=== PATIENT | female | born 1985 | race African-American/Black ===

== ENCOUNTER 2022-04-03 09:17 | Outpatient (CLI) | payer OTHER, SELFPAY ==
[2022-04-04 19:18] LABS: Rapid Plasma Reagin (RPR) Non Reactive (Non Reactive)
== END 2022-04-03 09:18 | disposition home or self-care (01) ==
LOC: NFLDREF 09:17
PROVIDERS: Visit Provider Advanced Practice Midwife
DX: Z34.91 Encounter for supervision of normal pregnancy, unspecified, first trimester (principal)
CPT/HCPCS: 86592

== ENCOUNTER 2022-06-07 11:32 | Outpatient (CLI) | payer OTHER, MEDICAID, SELFPAY ==
--- OUTSIDE RECORDS SUMMARY | 2022-06-07 11:33 | XMS_ITS | Clinical Summary ---
:1985 Author Organization [facility] [place] [address] Care Team Providers Name Role Phone Fartun Noonan MD Primary Care Provider Allergies Active Allergy Reactions Severity Noted Date Comments Egg Rash 02/22/2021 Medications Medication Sig Dispensed Refills Start Date End Date Status ibuprofen (ADVIL; Take 1 Tablet 0 02/22/2021 Active MOTRIN) 800 mg tablet (800 mg) by mouth 3 times daily if needed. meclizine (ANTIVERT) Take 1 Tablet (25 30 Tablet 0 06/29/2021 Active 25 mg mg) by mouth 3 tabletIndications: times daily if Vertigo needed. isoniazid 300 mg Take 1 Tablet 90 Tablet 2 10/26/2021 07/23/20 Active tabletIndications: TB (300 mg) by mouth lung, latent once daily. vit 28/iron Take 1 Tablet by 90 Tablet 3 11/21/2021 Active fum/folic mouth once daily. (multivitamin folic acid 1 mg)Indications: Positive test Active Problems Problem Noted Date 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 INH. 10/18/2021 Overview: Positive test 11/09/21. No known exposure to active TB in past 2 years. Tx deferred until 3 mos after delivery. Needs CXR prior to initiating. Comments Yes Encounters Date Type Specialty Care Team Description 05/29/2022 Nurse/Clinic Staff Only Immu nization/Injection (COVID-19 vacci ne) 05/29/2022 Travel from Last 3 Months Immunizations Name Administration Dates Next Due COVID-19 vaccine (Pfizer-BioNTech 30mcg/0.3mL) 12YO+ 022 BIVALENT BOOSTER PF, MDV COVID-19 vaccine ([employer]-BioNTech 30mcg/0.3mL) 12YO+ 022 DARRON-SUCROSE PF, MDV COVID-19 vaccine ([employer]-BioNTech 30mcg/0.3mL) PF, 1, 02/22/2021 MDV Tdap 05/10/2022 Social History Tobacco Use Types Packs/Day Years Used Date Never Smoker Smokeless Tobacco: Never Used Tobacco Cessation: Counseling Given: Yes Alcohol Use Standard Drinks/Week Comments Never 0 (1 standard drink = 0.6 oz pure alcoho l) Alcohol Habits Answer Date Recorded How often do you have a drink containing alcohol? Never 02/22/2021 How many drinks containing alcohol do you have on a typical Not asked day when you are drinking? How often do you have six or more drinks on one occasion? No t asked Comment: Not asked Comments Yes Sex Assigned at Date Recorded Not on file COVID-19 Exposure Response Date Recorded In the last 10 days, have you been in contact with No / Unsu re 05/29/2022 9:58 AM CDT someone who was confirmed or suspected to have Coronavirus/COVID-19? Obstetrics History Para Term AB IAB SAB Ectopic Multiple Living Live Births 4 2 2 2 Date Outcome GA Total Labor/2nd/3rd Weight Sex Delivery Anes PTL Jennifer A 1 A5 Name Clin Labor Term Term Current OB Episode Summary Episode Dates Estimated Date of Pregravid Weight TWG (As of ) Delivery 2021 - Present Unknown (06/07/2022) Progress Notes 11/21/2021 - Fartun Noonan MDFormcitlaly tting of this note is different from the original. SUBJECTIVE: Meghan Granado is a 35 y.o. female who presents to discuss Dizziness (X 1 1/2 weeks/Feels the same as when she had vertigo last summer), Nausea (All the time ), Vomiting (About every other day), and surekha avila had positive test at [facility] e 11/09/2021 . HPI Patient presents with concern for dizzin ess and nausea. She just found out she is . Positive test on 11/09/2021. Believes that LMP was early September, but not sure because her periods are irregular. Dizziness and nausea have be en occurring for a few weeks. Similar symptoms to when she had vertigo over the summer. She was prescribed meclizine back then, which helped somewhat. Believes th at the Fara maneuver was more helpful. She is vomiting about every other day. She is also having some headaches. Of note, she saw Dr. Richards on 2 for positive PPD test. Apparently had a negative PPD 5 years ago. No evidence of active disease and negative CXR. She was prescribed INH x9 months (rifampin in short supply). Today, states she has not been taking this as prescribed due to her . She denies known exposure to active tuberculosis in the past 2 years. She reports 2 prior pregnancies. Both we re vaginal deliveries at term. Children are ages 8 and 6. No complications with her prior pregnancies. ROS Review of Systems is included in the HPI . Patient Active Problem List Diagnosis Date Noted ? ? 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 INH. 10/18/2021 Current Outpatient Medications Medication Sig ? ? ibuprofen (ADVIL; MOTRIN) 800 mg tablet Take 1 Tablet (800 mg) by mouth 3 times daily if needed. ? ? isoniazid 300 mg tablet Take 1 Tablet (300 mg) by mouth once daily. ? ? meclizine (ANTIVERT) 25 mg tablet Take 1 Tablet (25 mg) by mouth 3 times daily if needed. ? ? multivitamin 27 mg iron- 800 mcg folic Take 1 Tablet by mouth once daily with a meal. No current facility-administered medicat ions for this visit. Medications have been reviewed by me and are current to the best of my knowledge and ability. OBJECTIVE: BP 93/62 (Cuff Site: Left Arm, Position: Sitting, Cuff Size: Adult Regular) Pulse 82 Temp 99.5 ??F (37.5 ??C) (Oral) Ht 1.638 m (5' 4.5) Wt 55.2 kg (121 lb 12.8 oz) LMP (Approximate) SpO2 99% BMI 20.58 kg/m?? PHYSICAL EXAM General: Well-appearing adult female. Al ert, oriented and appropriate. No acute distress. HEENT: Mucous membranes moist. Cardiovascular: Appears well-perfused. Pulmonary: Breathing comfortably on room air. Skin: No rashes appreciated over exposed skin. Neuro: Grossly normal, no focal deficits . ASSESSMENT AND PLAN: 1. Positive test Positive home test 11/09. Puma gallardo LMP was early September putting her at about 9 weeks. Recommend new OB labs and dating ultrasound today. Suspect increased dizziness and nausea are related to p regnancy. Reviewed nonpharmacologic and ryse-onb-rcrjdol strategies for managing nausea and vomiting of . She was provided with qvci-bcy-txpojyc medication handout and encouraged to t ry vitamin B6 and doxylamine. She will c ontact me if symptoms are not well controlled despite these measures. Plan for follow-up at 10 to 12 weeks for new OB visit. - CBC W PLT NO DIFF; Future - ANTI HIV 1/2; Future - URINE CULTURE; Future - TYPE AND SCREEN; Future - VARICELLA ZOSTER IMM ASSY; Future - RUBELLA IMMUNE STATUS; Future - TREPONEMA PALLIDUM; Future - HBSAG (HBS); Future - ANTI HCV; Future - US OB 1ST TRI SINGLE TA AND TV; Future - vit 28/iron fum/folic (multiv itamin folic acid 1 mg); Take 1 Tablet by mouth once daily. Dispense: 90 Tablet; Refill: 3 - URINE; Future - CBC W PLT NO DIFF - ANTI HIV 1/2 - URINE CULTURE - TYPE AND SCREEN - VARICELLA ZOSTER IMM ASSY - RUBELLA IMMUNE STATUS - TREPONEMA PALLIDUM - HBSAG (HBS) - ANTI HCV - URINE - GC & CHLAMYDIA DNA PCR [[id number]]; Futu re - GC & CHLAMYDIA DNA PCR [[id number]] 2. Latent tuberculosis by skin test Given no known exposure to active TB in the past 2 years, recommend delaying treatment for latent TB until 3 months after delivery. Patient should not take the previously prescribed rifampin. She expresses understanding and agreement with the plan. Fartun Noonan MD .................. .. 11/21/2021 11:46 AM Total time preparing to see this patient , pgtg-ai-pkcq time, and coordinating care time on the same calendar date: 40 minutes. Last Filed Vital Signs Vital Sign Reading Time Taken Comments Blood Pressure 93/62 11/21/2021 11:34 AM CDT Pulse 82 11/21/2021 11:34 AM CDT Temperature 37.5 ??C (99.5 ??F) 11/21/2021 11:34 AM CDT Respiratory Rate - - Oxygen Saturation 99% 11/21/2021 11:34 AM CDT Inhaled Oxygen Concentration - - Weight 55.2 kg (121 lb 12.8 oz) 11/21/2021 11:34 AM CDT Height 163.8 cm (5' 4.5) 11/21/2021 11:34 AM CDT Body Mass Index 20.58 11/21/2021 11:34 AM CDT Plan of Treatment Health Maintenance Due Date Last Done Comments Depression screening for age 12+ 02/23/2022 02/23/2021, , 02/22/2021 Influenza for age 9-49 05/09/2022 BMI (ht and wt on same day) for 11/21/2022 11/21/2021, 02/06 age 18+ Pap test for age 21-65 12/11/2024 12/11/2021, 12/11/2021 Tetanus booster 05/10/2032 05/10/2022 Hepatitis C screening for age Completed 11/21/2021 18-79 Tdap Completed 05/10/2022 COVID-19 vaccine series Completed 05/29/2022, 10/18/2021, 03/15/2021, Additional history exists Results Not on filefrom Last 3 Months Insurance Payer Benefit Plan / Subscriber ID Effective Dates Phone Addre ss Type Group [facility] SHARED [id number] 2020-Presen [address] [address] [place] [address] Meghan Granado Motor Vehicle Self [phone] [id number] (Home) [facility] [place] [address] Care Teams Sales Mgr Relationship Specialty Start Date End Date Fartun Noonan MD PCP - General Family Practice 02/22/21 [address] [facility] [id number]
[2022-06-08 17:22] LABS: Strep B DNA Probe NEGATIVE (Negative)
== END 2022-06-07 11:33 | disposition home or self-care (01) ==
LOC: NFLDREF 11:32
PROVIDERS: Visit Provider Advanced Practice Midwife
DX: Z34.90 Encounter for supervision of normal pregnancy, unspecified, unspecified trimester (principal)
CPT/HCPCS: 87081; 87653

== ENCOUNTER 2022-06-10 15:00 | Outpatient (RCR) | payer OTHER, MEDICAID, SELFPAY ==
--- NOTE | 2022-05-27 12:22 | PT.OPDNX ---
PT [place] [facility] Daily Note PT [facility] Outpatient Daily Note Start: 05/27/22 12:19 Freq: Status: Active Protocol: Document 05/27/22 12:19 ARR (Rec: 05/27/22 12:21 ARR [id number]) E-signed By Emily Zhu DPT PT OP Daily Progress Note Visit Information Note Type Daily Note Visit Number 1 Insurance Information Recert Due Date 07/26/22 Insurance Name Medicaid,UCare Insurance Information/Comments Eval: 05/27 POC 1x5 Medical Diagnosis O99.891 other unspecified diseases and conditions complicating M79.18 myalgia, other site Pain in symphysis pubis during Treating Diagnosis R27.8 Lack of coordination ( muscle incoordination) R10.2 Pelvic and perineal pain R10.30 Lower abdominal pain, unspecified Referring MD Nancy Armendariz CNM ([facility]) Subjective Subjective -MEGHAN 07/05 and ~34 wks this date. Greatest pain is lower belly. Has 2 girls and they sat higher. Now with this sits lower a feels like a sharp pain. Location between legs/groin area bilaterally. Also notes having lower back pain. Tried exercises - doing a ball. Steps are okay, doesn't increase. Has tried many different abdominal braces. Also notes neck pain and shoulder pain -Increases in pain: standing for longer period of time >10 min, walking. Back pain can increase when bending forward Objective Other/Pertinent Objective Posture: IC elevated crest on L by 1 thumbwidth, loss of upper TS kyhposis, inc'd bilat foot pronation with hallux vaglus R>L Palpation: TTP pubic symphysis and bilateral lower quadrant Gait: antalgic gait with wide KRUNAL, inc'd hip/foot ER, swayback type posture RANGE OF MOTION: Lumbar ROM: -Flx:75% limitation with LBP inc'd posterior prominence of L spine likely indicating posterior rotation on L -Ext: 60% limitation with LBP -R Rot: limited with pain -L Rot: limited with pain STRENGTH: LE Strength (R/L) -Hip drop during stance phase bilat indicating glut med weakness OTHER: -Hyperextension into bilateral knees and elbows Patient Instructed in Risks/Benefits Yes Therapeutic Exercise Therapeutic Exercise Minutes (minutes) 15 Therapeutic Exercise: To Restore Therapeutic Exercise: Functional Status Indicated for improvement in strengthening and mobility. -Handouts with written instructions and photographs of exercises were issued to the patient for exercises to be included in HEP. Answered patient questions regarding POC, and mobility/stretches to perform if pain occurs -TS AROM rotation x 8 reps ea side -Side breathing x 8 reps ea side -Sidelying TA activation on an exhale 8 x 3? holds -Quadruped breathing with TA activation Therapeutic Activity Therapeutic Activity Minutes (minutes) 15 Therapeutic Activities Comments Education for transfers to reduce pain/dysfunction: Sit to Stand: - Stagger your stance so one foot is slightly in front of the other - Inhale then EXHALE blowing out candles as you . . . - 1) Lift baby (tightening lower belly muscles) - 2) Tighten butt muscles Walking or Standing: - Pull through crown of head ( pull hair on top of head) to get tall - Lightly lift baby - If walking lightly tighten butt muscle on leg that is stepping on the ground Treatment Minutes Untimed Code Treatment Minutes 25 Timed Code Treatment Minutes 30 Total Treatment Time 55 Billing Units Therapeutic Activity Units 1 Therapeutic Exercise Units 1 Assessment/Impression Assessment/Impression Pt is a 36 y/o female who presents with complaints of bilateral groin/pubic symphysis pain 35 wks with MEGHAN 07/05. 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 Patient also has notable objective findings including bilateral foot pronation, joint hypermobility also likely contributing to the problem. Patient is a good candidate for skilled therapy to target deficits described above. Skilled PT intervention is necessary for use of therapeutic exercise manual therapy, neuromuscular re- education, gait training, and therapeutic activity. Functional impairments include difficulty with: standing >10 min, walking. See appropriate sections of PT eval for complete list of goals and POC . D/C plan and criteria is for pt to achieve the goals as listed below or until max rehab potential is met. Pt was agreeable with plan of care and goals established. Plan of Care Physical Therapy Goals STG (within 1 visits) 1) Pt will initiate HEP without increased pain/ symptoms 2) Pt will demonstrate ability to isometrically activate TA and gluts with minimal compensations in order to improve lumbopelvic stability LTG (within 5 visits) 1) Pt will be indep with HEP for [employer] management of pain/symptoms 2) Pt will demonstrate ability to maintain activation of TA and gluts with minimal compensations during dynamic lower/upper body mvmts in order to improve lumbopelvic stability 3)Pt will be able to walk at least 15 min pain not exceeding 3/10 to improve community mobiltiy 4) Pt will report at least 50% improvement in pain/symptoms since start of PT for improved ability to complete ADLs Daily Plan of Care Comments PLAN: -STM adductors, cupping into low back, seated glut strengthening, breathing/ stretching for delivery Recertification Information Provider Signature Shows Agreement With POC & Medical Necessity
--- NOTE | 2022-05-31 12:47 | PT.OPEX ---
PT [place] Outpatient Eval PT [facility] Outpatient Eval Start: 05/27/22 09:07 Freq: Status: Active Protocol: Document 05/27/22 09:08 ARR (Rec: 05/27/22 10:01 ARR [id number]) E-signed By Emily Zhu DPT Physical Therapy Outpatient Evaluation Insurance Information Recert Due Date 07/26/22 Insurance Name Medicaid,are Insurance Information/Comments Eval: 05/27 POC 1x5 Medical Diagnosis O99.891 other unspecified diseases and conditions complicating M79.18 myalgia, other site Pain in symphysis pubis during Treating Diagnosis R27.8 Lack of coordination ( muscle incoordination) R10.2 Pelvic and perineal pain R10.30 Lower abdominal pain, unspecified Referring MD Nacny Armendariz CNM ([facility]) Subjective Subjective -MEGHAN 07/05 and ~34 wks this date. Greatest pain is lower belly. Has 2 girls and they sat higher. Now with this sits lower a feels like a sharp pain. Location between legs/groin area bilaterally. Also notes having lower back pain. Tried exercises - doing a ball. Steps are okay, doesn't increase. Has tried many different abdominal braces. Also notes neck pain and shoulder pain -Increases in pain: standing for longer period of time >10 min, walking. Back pain can increase when bending forward Objective Other/Pertinent Objective Posture: IC elevated crest on L by 1 thumbwidth, loss of upper TS kyhposis, inc'd bilat foot pronation with hallux vaglus R>L Palpation: TTP pubic symphysis and bilateral lower quadrant Gait: antalgic gait with wide KRUNAL, inc'd hip/foot ER, swayback type posture RANGE OF MOTION: Lumbar ROM: -Flx:75% limitation with LBP inc'd posterior prominence of L spine likely indicating posterior rotation on L -Ext: 60% limitation with LBP -R Rot: limited with pain -L Rot: limited with pain STRENGTH: LE Strength (R/L) -Hip drop during stance phase bilat indicating glut med weakness OTHER: -Hyperextension into bilateral knees and elbows Assessment Assessment/Impression Pt is a 36 y/o female who presents with complaints of bilateral groin/pubic symphysis pain 35 wks with MEGHAN 07/05. 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 Patient also has notable objective findings including bilateral foot pronation, joint hypermobility also likely contributing to the problem. Patient is a good candidate for skilled therapy to target deficits described above. Skilled PT intervention is necessary for use of therapeutic exercise manual therapy, neuromuscular re- education, gait training, and therapeutic activity. Functional impairments include difficulty with: standing >10 min, walking. See appropriate sections of PT eval for complete list of goals and POC . D/C plan and criteria is for pt to achieve the goals as listed below or until max rehab potential is met. Pt was agreeable with plan of care and goals established. Plan of Care Physical Therapy Goals STG (within 1 visits) 1) Pt will initiate HEP without increased pain/ symptoms 2) Pt will demonstrate ability to isometrically activate TA and gluts with minimal compensations in order to improve lumbopelvic stability LTG (within 5 visits) 1) Pt will be indep with HEP for [facility] management of pain/symptoms 2) Pt will demonstrate ability to maintain activation of TA and gluts with minimal compensations during dynamic lower/upper body mvmts in order to improve lumbopelvic stability 3)Pt will be able to walk at least 15 min pain not exceeding 3/10 to improve community mobiltiy 4) Pt will report at least 50% improvement in pain/symptoms since start of PT for improved ability to complete ADLs Frequency/Duration 1x/wk x 5 visits within 60 days Patient Will Be Discharged From Therapy Skills [facility],Independent w/ HEP Evaluation Billing Untimed Code Treatment Minutes 25 Complexity Low Certification Information Initial Certification Date 05/27/22 Ending Certification Date 07/26/22 Provider Signature Shows Agreement With POC & Medical Necessity Physician Comment/Change Comment or Changes Physician NPI Number #
== END 2022-07-04 16:20 | disposition home or self-care (01) ==
PROVIDERS: Visit Provider Advanced Practice Midwife
DX: O99.891 Other specified diseases and conditions complicating pregnancy (principal); Z51.89 Encounter for other specified aftercare
CPT/HCPCS: 97110; 97112; 97140; 97161; 97530

== ENCOUNTER 2022-06-18 17:52 | Outpatient (CLI) | payer OTHER, MEDICAID, SELFPAY ==
--- OUTSIDE RECORDS SUMMARY | 2022-06-18 17:55 | XMS_ITS | Clinical Summary ---
:1985 Author Organization [employer] [place] [address] Care Team Providers Name Role Phone Fartun [...] 022 BIVALENT BOOSTER PF, MDV COVID-19 vaccine ([employer]-BioNTech 30mcg/0.3mL) 12YO+ 022 DARRON-SUCROSE PF, MDV COVID-19 vaccine (Hydrophi-BioNTech 30mcg/0.3mL) PF, 1, 02/22/2021 MDV Tdap 05/10/2022 [...] of ) Delivery 2021 - Present Unknown (06/18/2022) Progress Notes 11/21/2021 - Fartun Noonan MDFormcitlaly tting of this note is different from the original. SUBJECTIVE: Meghan Granado is a 35 y.o. female who presents to discuss Dizziness (X 1 1/2 weeks/Feels the same as when she had vertigo last summer), Nausea (All the time ), Vomiting (About every other day), and surekha avila had positive test at [facility] e 11/09/2021 . HPI Patient presents with [...] related to p regnancy. Reviewed nonpharmacologic and acce-dvi-pfgafuk strategies for managing nausea and vomiting of . She was provided with pirb-vkd-ehjifms medication handout and encouraged to t ry [...] URINE - GC & CHLAMYDIA DNA PCR [[id number]]; Futu re - GC & CHLAMYDIA DNA PCR [[id number]] 2. Latent tuberculosis by skin test Given no known exposure to active TB in the past 2 years, recommend delaying treatment for latent TB until 3 months after delivery. Patient should not take the previously prescribed rifampin. She expresses understanding and agreement with the plan. Fartun Noonan MD .................. .. 11/21/2021 11:46 AM Total time preparing to see this patient , hshb-th-xffi time, and coordinating care time on the [...] Effective Dates Phone Addre ss Type Group [facility] SHARED [id number] 2020-[address]en [address] [address] [place] [address] Meghan Granado Motor Vehicle Self [phone] [id number] (Home) [facility] [place] [address] Care Teams Level Vial Marker Relationship Specialty Start Date End Date Fartun Noonan MD PCP - General Family Practice 02/22/21 [address] [facility] [id number]
[2022-06-18 18:20] VITALS: PULSE 84; O2SAT 97
--- NOTE | 2022-06-18 19:15 | PC.OBNST ---
NST Note NST Note Start: 06/18/22 18:02 Freq: ONCE Status: Active Protocol: Document 06/18/22 18:32 [facility] (Rec: 06/18/22 19:15 [facility] [id number]) NST Note 3 Para (# of births) 2 EDC 07/05/22 Gestational Age In Weeks & Days 37 Weeks & 4 Days Patient Presented with Complaint(s) of Decreased movement Other Complaints Continues to have SOB and migraines, MD is aware that this has been ongoing. Patient did feel one movement from baby while RN was in room. Reactive Yes Appropriate for Gestational Age Yes MEHDI Damon RN Date 06/18/22 Reactive Yes Appropriate for Gestational Age Yes MEHDI Stahl RN Date 06/18/22 OB NST charge Yes Complete NST Note via Write Note Yes The provider's electronic signature indicates the NST is reactive/appropriate for gestational age. *Note to provider: If an addendum is required, open the patient's chart and click on the note under the Nurse/Allied Health tab.
== END 2022-06-18 19:05 | disposition home or self-care (01) ==
LOC: OB OUT 17:53 → OB 17:54
PROVIDERS: Visit Provider Advanced Practice Midwife
DX: O36.8130 Decreased fetal movements, third trimester, not applicable or unspecified (principal); Z3A.37 37 weeks gestation of pregnancy
CPT/HCPCS: 59025; 99213

== ENCOUNTER 2022-06-18 19:30 | Outpatient (CLI) | payer OTHER, MEDICAID, SELFPAY ==
--- OUTSIDE RECORDS SUMMARY | 2022-06-18 19:32 | XMS_ITS | Clinical Summary ---
:1985 Author Organization [employer] [facility] [place] [address] Care Team Providers Name Role Phone Fartun [...] 022 BIVALENT BOOSTER PF, MDV COVID-19 vaccine ([employer]-BioNTech 30mcg/0.3mL) 12YO+ 022 DARRON-SUCROSE PF, MDV COVID-19 vaccine ([employer]-BioNTech 30mcg/0.3mL) PF, 1, 02/22/2021 MDV Tdap 05/10/2022 [...] and surekha avila had positive test at [facility] e 11/09/2021 . HPI Patient presents with [...] related to p regnancy. Reviewed nonpharmacologic and ssxo-ayl-txuzfes strategies for managing nausea and vomiting of . She was provided with ocqh-mtl-itebbbl medication handout and encouraged to t ry [...] URINE - GC & CHLAMYDIA DNA PCR [[id number]]; Futu re - GC & CHLAMYDIA DNA PCR [[id number]] 2. Latent tuberculosis by skin test Given no known exposure to active TB in the past 2 years, recommend delaying treatment for latent TB until 3 months after delivery. Patient should not take the previously prescribed rifampin. She expresses understanding and agreement with the plan. Fartun Noonan MD .................. .. 11/21/2021 11:46 AM Total time preparing to see this patient , yfiz-nd-avbl time, and coordinating care time on the [...] Effective Dates Phone Addre ss Type Group [facility] SHARED [id number] 2020-[address]en [address] [address] [place] [address] Meghan Granado Motor Vehicle Self [phone] [id number] (Home) [facility] [place] [address] Care Teams Food Processing Chemist Relationship Specialty Start Date End Date Fartun Noonan MD PCP - General Family Practice 02/22/21 [address] [facility] [address]
[2022-06-18 19:35] VITALS: BP 99/64; PULSE 85; RESP 16; TEMP 36.9
[2022-06-18 19:37] VITALS: PULSE 79; O2SAT 100
[2022-06-18] MEDS: LACTATED RINGERS 1000 ML 1,000 ML 970 ML IV (19:56)
[2022-06-18] MEDS: ONDANSETRON 2 MG/ML inj 4 MG IVP (20:05)
[2022-06-18 20:14] LABS: Basophils Absolute Auto 0.04 K/uL (0.00-0.30); Basophils Percent Auto 0.4 % (0.0-3.0); Eosinophils Absolute Auto 0.08 K/uL (0.00-0.50); Eosinophils Percent Auto 0.8 % (0.0-7.0); Hematocrit 38.1 % (33.0-51.0); Hemoglobin* 12.6 gm/dL (12.0-16.0); Immature Granulocytes Abs Auto 0.06 K/uL (0.00-0.30); Lymphocytes Percent Auto 19.8 % (20-44); Mean Corpuscular HGB Conc 33 gm/dL (32-36); Mean Corpuscular Hemoglobin 29 pg (26-34); Mean Corpuscular Volume 87 fL (80-100); Neutrophils Percent Auto 71.4 % (42.0-72.0); Platelet Count* 185 K/uL (140-440); RDW Coefficient of Variation % 13.7 % (11.5-15.5); Red Blood Count 4.36 m/uL (4.00-5.20); White Blood Count* 9.95 K/uL (4.50-11.00)
[2022-06-18 20:22] LABS: Slide Review Reflex No
--- NOTE | 2022-06-19 01:28 | PC.OBNST ---
NST Note NST Note Start: 06/18/22 19:39 Freq: ONCE Status: Active Protocol: Document 06/19/22 01:25 JOSE (Rec: 06/19/22 01:27 JOSE [id number]) NST Note 3 Para (# of births) 2 EDC 07/05/22 Gestational Age In Weeks & Days 37 Weeks & 5 Days Patient Presented with Complaint(s) of Other Other Complaints Decreased LOC/increased fatigue evaluation Reactive Yes Appropriate for Gestational Age Yes MEHDI Baca, RNC Date 06/18/22 Reactive Yes Appropriate for Gestational Age Yes MEHDI Suarez, RN Date 06/18/22 OB NST charge Yes Complete NST Note via Write Note Yes The provider's electronic signature indicates the NST is reactive/appropriate for gestational age. *Note to provider: If an addendum is required, open the patient's chart and click on the note under the Nurse/Allied Health tab.
== END 2022-06-18 23:50 | disposition home or self-care (01) ==
LOC: OB OUT 19:30 → OB 19:31
PROVIDERS: Visit Provider Advanced Practice Midwife
DX: O36.8130 Decreased fetal movements, third trimester, not applicable or unspecified (principal); Z3A.37 37 weeks gestation of pregnancy
CPT/HCPCS: 36415; 59025; 85025; 99213; J2405; J7120

== ENCOUNTER 2022-07-02 09:52 | Inpatient (IN) | payer OTHER, MEDICAID, SELFPAY ==
[2022-07-01] VITALS (19 sets, daily range): BP systolic 92; BP diastolic 64; PULSE 76–108; RESP 16; TEMP 36.8; O2SAT 93–100
--- OUTSIDE RECORDS SUMMARY | 2022-07-01 18:22 | XMS_ITS | Clinical Summary ---
:1985 Author Organization [facility] [place] [address] Care Team Providers Name Role Phone Fartun [...] 022 BIVALENT BOOSTER PF, MDV COVID-19 vaccine (Pfizer-BioNTech 30mcg/0.3mL) 12YO+ 022 DARRON-SUCROSE PF, MDV COVID-19 vaccine (Pfizer-BioNTech 30mcg/0.3mL) PF, 1, 02/22/2021 MDV Tdap 05/10/2022 [...] Assigned at Date Recorded Not on file Obstetrics History Para Term AB IAB SAB Ectopic Multiple Living Live Births 4 2 2 2 Date Outcome GA Total Labor/2nd/3rd Weight Sex Delivery Anes PTL Jennifer A 1 A5 Name Clin Labor Term Term Current OB Episode Summary Episode Dates Estimated Date of Pregravid Weight TWG (As of ) Delivery 2021 - Present Unknown (07/01/2022) Progress Notes 11/21/2021 - Fartun Noonan MDFormcitlaly tting of this note is different from the original. SUBJECTIVE: Meghan Granado is a 35 y.o. female who presents to discuss Dizziness (X 1 1/2 weeks/Feels the same as when she had vertigo last summer), Nausea (All the time ), Vomiting (About every other day), and pa austin had positive test at [facility] 11/09/2021 . HPI Patient presents with [...] 1. Positive test Positive home test 11/09. Estima paulina LMP was early September putting her at about 9 weeks. Recommend new OB labs and dating ultrasound today. Suspect increased dizziness and nausea are related to p regnancy. Reviewed nonpharmacologic and efpf-cub-wnlfove strategies for managing nausea and vomiting of . She was provided with xeei-mwd-xkbptzt medication handout and encouraged to t ry [...] URINE - GC & CHLAMYDIA DNA PCR [[id number]]; Futu re - GC & CHLAMYDIA DNA PCR [[id number]] 2. Latent tuberculosis by skin test Given no known exposure to active TB in the past 2 years, recommend delaying treatment for latent TB until 3 months after delivery. Patient should not take the previously prescribed rifampin. She expresses understanding and agreement with the plan. Fartun Noonan MD .................. .. 11/21/2021 11:46 AM Total time preparing to see this patient , pzmj-be-xiai time, and coordinating care time on the [...] Effective Dates Phone Addre ss Type Group [facility] SHARED [id number] [address] [address] [place] [address] Meghan Granado Motor Vehicle Self [phone] [id number] ([address]) [address] [id number] Care Teams Wedding Coordinator Relationship Specialty Start Date End Date Fartun Noonan MD PCP - General Family Practice 02/22/[address] [place] [address] [address]
[2022-07-01 19:30] LABS: Basophils Absolute Auto 0.04 K/uL (0.00-0.30); Basophils Percent Auto 0.4 % (0.0-3.0); Eosinophils Absolute Auto 0.06 K/uL (0.00-0.50); Eosinophils Percent Auto 0.6 % (0.0-7.0); Hematocrit 42.2 % (33.0-51.0); Hemoglobin* 14.1 gm/dL (12.0-16.0); Immature Granulocytes Abs Auto 0.05 K/uL (0.00-0.30); Lymphocytes Percent Auto 17.3 % (20-44); Mean Corpuscular HGB Conc 33 gm/dL (32-36); Mean Corpuscular Hemoglobin 29 pg (26-34); Mean Corpuscular Volume 87 fL (80-100); Monocytes Percent Auto 5.1 % (0.0-11.0); Neutrophils Percent Auto 76.1 % (42.0-72.0); Platelet Count* 197 K/uL (140-440); RDW Coefficient of Variation % 13.7 % (11.5-15.5); Red Blood Count 4.86 m/uL (4.00-5.20); White Blood Count* 10.47 K/uL (4.50-11.00)
[2022-07-01 19:55] LABS: NT Pro B Type NatriureticPept* 32 PG/mL (0-125)
[2022-07-01 20:12] LABS: Slide Review Reflex No
[2022-07-01 20:16] LABS: Troponin I* < 0.01 ng/mL (0.01-0.04)
--- NOTE | 2022-07-01 21:14 | PM.OBCN1 ---
OB - CN: HPI Date of Consult Time Seen by Provider: 18:00 Date Seen: 07/01/22 Patient: [facility] Patient Consult date: 07/02/22 Requesting Physician: Nancy Armendariz APRN CNM Primary Care Provider: Not a Local Provider Consult Narrative Narrative: The patient is a 36 year old G 3 P 2001 at 39 weeks 3 days gestation that was admitted for observation overnight at the [facility] on 07/01/2022 for diagnosed deep vein thrombosis. Patient was seen in clinic by Nancy Armendariz APRN CNM complaining of left calf pain and SOB. With calf pain getting increasing worse. Patient was sent for lower extremity doppler and diagnosed with a left popliteal thrombosis. I was consulted after verbal read from highway engineering technician. I assessed patient in clinic and she states that her SOB has been on going since the last month of , worse with exertion and position changes. Additionally, her SOB is worse at night, sometimes making it difficult for her to fall asleep. It was a gradual onset and no associated chest pain. She noted her left calf pain a week ago and has progressively gotten worse and getting more difficult to bear weight. She denies any injury or recent prolonged period of immobility such as long car/plane rides. She has no history or family history of blood clots. +FM. Denies contraction, LOF, or vaginal bleeding. BPP 8/10 today (2 off for breathing). See clinic note for complete review of well-being. History History 3 Elective abortions Para 2 Spontaneous abortions Hx # Term Pregnancies 2 Ectopic pregnancies Hx # Pregnancies Multiple births Number of Living Children 2 Past Pregnancies Del. Date GA/Weeks Outcome Route wt Inf Gender Labor Lgth Anesthesia Location Provider Compli 02/06/14 live - full term 2.722 kg Female In [place] 10/09/15 live - full term 3.175 kg Female In [place] Review of Systems Status of ROS: Reports: 10 or more systems reviewed and unremarkable except as noted in History and below PFSH PFS Medical History (Updated 07/01/22 @ 23:27 by Maeve Felipe MD) No pertinent past medical history Surgical History (Updated 06/14/22 @ 16:11 by Lisa Santos CNM) No pertinent past surgical history Social History (Updated 06/14/22 @ 16:12 by JOSE CARLOS Crum Narrative: SOCIAL HISTORY: 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 Marital status: . Restoration/cultural needs: no Chemical or radiation exposure: no. Pre- tobacco use: no. Pre- alcohol use: no. Current tobacco use: no. Current alcohol use: no. Recreational drug use: no. Dietary restrictions: no. Blood transfusion acceptable in an emergency: yes PSYCHOSOCIAL HISTORY: History of depression or currently depresses: no Current physical, emotional, or sexual mistreatment: no. Problems that will make it hard to make it to appointments: no. Smoking Status: Never smoker Little interest or pleasure in doing things: more than half the days Feeling down, depressed, or hopeless: nearly every day Meds Home Medications and Allergies Allergies Allergy/AdvReac Type Severity Reaction Status Date / Time No Known Allergies Allergy Unknown Verified 07/01/22 13:43 Eggs Allergy Uncoded 07/01/22 13:43 OB - H&P: Exam Physical Exam: Vital signs: Pulse Ox 99 07/01/22 19:49 Narrative: Physical exam: General: No acute distress Psych: Alert and oriented x3, full affect HEENT: Normocephalic, atraumatic Neck: No cervical adenopathy, no thyromegaly Heart: Regular rate and rhythm, no murmur rub or gallop Lungs: Clear to auscultation bilaterally in all lung vargas. Normal respiratory effort. Abdomen: Gravid. Soft and non tender to palpation. Skin: No lesions or rashes Lower extremities: No edema or erythema bilaterally. Tenderness on palpation of posterior calf of left leg. +Serene sign on left leg. Pelvic exam: Defer OB - Results Labs Labs: Short CBC 07/01/22 Range/Units 19:23 WBC 10.47 (4.50-11.00) K/uL Hgb 14.1 (12.0-16.0) gm/dL Hct 42.2 (33.0-51.0) % Plt Count 197 (140-440) K/uL Cardiac Enzymes 07/01/22 Range/Units 19:23 Troponin I < 0.01 L (0.01-0.04) ng/mL OB - CN: A/P Assessment and Plan (1) DVT (deep vein thrombosis) in : Status: Acute Plan Deep vein thrombosis in - Dx on 07/01 based on lower extremity ultrasound - I discussed ultrasound findings with Dr. Forbes who states that patient has acute DVT in left lower extremity popliteal vein and probably extending into the peroneal veins. - I discussed the findings with patient and informed her that she would need therapeutic anticoagulation. - Duration of therapy for DVT is at least 3 months for patients who only have transient risk factors for VTE (ie. surgery/), longer should we discover multiple other risk factors or persistent risk factors for VTE. - We discussed that given her diagnosis of DVT, it makes her SOB complaint more concerning. Clinically, she appears well with normal respiration and has O2 sat above 98% on RA. However, I can't be certain that she does not have clots in her lungs. We would rule this out with either a V/Q scan or CTPE. I recommend CTPE given her current SOB. We discussed that dose for a CT chest is almost negligible, 0.01 - 0.66 mGy and would not be expected to cause any harm, especially this late in . Patient is extremely hesitant and wants to avoid ionizing radiation exposure to any kind of radiation. She asked what the CTPE would change about her management plan if she is already going to be on therapeutic anticoagulation. I told her that some pulmonary embolisms might require catheter directed thrombolysis, thrombectomy, or a combination of both. She states that she does not think she has a PE in things that her shortness of breath is related as well as some element of anxiety. I agree with the patient that this is most likely as her vital signs are all within normal but cannot r/o a PE definitively without imaging. - Patient continues to decline CTPE - As patient does not want CTPE, I recommended observation overnight on L&D with continuous monitoring of her O2 sat, as her SOB is worse at night. Additionally, given that it's very late in the day, there are no clinic nurses to do Lovenox teaching. The nurses on L&D can give her the first dose of Lovenox and give teaching tomorrow morning. - Will also send troponin and BNP to evaluate for heart strain. If elevated, will re-discuss with patient the importance of getting a CTPE. - Lovenox 1mg/kg Q12H for at least 3 months - Her calculated dosing is 66 mg of lovenox Q12H. Lovenox syringes do not come prefilled in this dosing and it would be difficult for patient to draw up exact dose. Would round her recommended dosing to 70 mg Q12H. Spoke with hospital pharmacy and there is only 60 mg and 80 mg prefilled. They do not have the 10 mg prefilled syringes here to give with the 60 mg but states that her preferred pharmacy might have it. - Plan for 66 mg of lovenox Q12H while in hospital and discharge on 70 mg of lovenox Q12H for at least 3 months - I do not recommend treating her with anything less than Lovenox 66 mg Q12H without monitoring anti-Xa levels to guide dose adjustment to make sure patient is at a therapeutic level - Should anti-Xa monitoring be needed, 1st anti-Xa level is to be drawn 4 hours after her 4th dose. Target range: anti-Xa of 0.6 to 1.0 IU/mL - Any dose adjustment made should be followed up with an anti-Xa level after 3rd injection of new dose. Will not need to recheck anti-Xa after target range is reached - Delivery planning - Spoke with Nancy Armendariz APRN CNM, currently no IOL plan, awaiting spontaneous labor. - DVT is not an indication for IOL, would deliver for obstetrical indications only - Recommend discontinuing Lovenox 24 hours prior to delivery if date is predictable, possible transition to UFH depending in clinical picture and risk factors at time of delivery
[2022-07-01] MEDS: ENOXAPARIN 80 MG/0.8 ML INJ 70 MG SUBCUT (21:20)
[2022-07-01] MEDS: ACETAMINOPHEN 500 MG TABLET 1000 MG PO (21:42)
[2022-07-02] VITALS (142 sets, daily range): BP systolic 73–103; BP diastolic 44–68; PULSE 63–121; RESP 16–18; TEMP 36.6–37; O2SAT 94–100
[2022-07-02] MEDS: ONDANSETRON ODT 4 MG TAB PO (02:21)
[2022-07-02] MEDS: hydrOXYzine pamoate 25 MG CAPSULE 50 MG PO (02:27)
[2022-07-02 10:20] LABS: Hematocrit 41.7 % (33.0-51.0); Mean Corpuscular HGB Conc 34 gm/dL (32-36); Mean Corpuscular Hemoglobin 29 pg (26-34); Mean Corpuscular Volume 87 fL (80-100); Platelet Count* 181 K/uL (140-440); Red Blood Count 4.82 m/uL (4.00-5.20); White Blood Count* 9.13 K/uL (4.50-11.00)
[2022-07-02 10:25] LABS: Slide Review Reflex No
[2022-07-02] MEDS: HEPARIN 25,000 UNIT/500 ML BAG 24 UNIT IV (10:26)
[2022-07-02 10:33] LABS: INR 1.14 (0.91-1.10); Prothrombin Time 15.2 Seconds
[2022-07-02 11:06] LABS: Partial Thromboplastin Time* 28 Seconds (23-33)
--- NOTE | 2022-07-02 13:14 | PM.OBCN1 ---
OB - CN: HPI Date of Consult Date Seen: 07/02/22 Patient: [facility] Patient Consult date: 07/02/22 Requesting Physician: Lisa Santos CNM Primary Care Provider: Not a Local Provider Consult Narrative Narrative: The patient is a 36 year old G 3 P 2-0-0-2 woman at 39 4/7 weeks' gestation that was admitted to the Center on yesterday for new diagnosis of left extremity deep venous thrombosis. Please refer to Dr. Felipe's consult note from last night for full detail. Interim update: Margarita reports that She has had no change in SOB. She continues to feel sore behind her left knee with walking. Regarding her desires for delivery: she has never had an unmedicated delivery. While she favors waterbirth, she does want access to epidural should she feel she needs this. History History 3 Elective abortions Para 2 Spontaneous abortions Hx # Term Pregnancies 2 Ectopic pregnancies Hx # Pregnancies Multiple births Number of Living Children 2 Past Pregnancies Del. 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 Marital status: . Religion/cultural needs: no Chemical or radiation exposure: no. Pre- tobacco use: no. Pre- alcohol use: no. Current tobacco use: no. Current alcohol use: no. Recreational drug use: no. Dietary restrictions: no. Blood transfusion acceptable in an emergency: yes PSYCHOSOCIAL HISTORY: History of depression or currently depresses: no Current physical, emotional, or sexual mistreatment: no. Problems that will make it hard to make it to appointments: no. Smoking Status: Never smoker Little interest or pleasure in doing things: more than half the days Feeling down, depressed, or hopeless: nearly every day Meds Home Medications and Allergies Allergies Allergy/AdvReac Type Severity Reaction Status Date / Time egg Allergy Rash Verified 07/02/22 11:32 OB - H&P: Exam Physical Exam: Vital signs: Temp Pulse Resp BP Pulse Ox 97.8 F 88 16 91/55 L 99 07/02/22 03:00 07/02/22 12:27 07/02/22 03:00 07/02/22 12:27 07/02/22 13:10 Narrative: Gen - delightful, pleasant, NAD Abd - soft, NT, gravid SVE - 3 / 90 / 0 / midposition / soft, vertex OB - Results Labs Labs: Short CBC 07/01/22 07/02/22 Range/Units 19:23 10:00 WBC 10.47 9.13 (4.50-11.00) K/uL Hgb 14.1 14.0 (12.0-16.0) gm/dL Hct 42.2 41.7 (33.0-51.0) % Plt Count 197 181 (140-440) K/uL Cardiac Enzymes 07/01/22 Range/Units 19:23 Troponin I < 0.01 L (0.01-0.04) ng/mL BNP normal last night OB - CN: A/P Assessment and Plan (1) DVT (deep vein thrombosis) in : Status: Acute Plan First, Margarita's case was discussed with JESSICA Keller at [facility]. Margarita would not require IVC filter placement. Dr. Crocker did recommend echocardiogram to rule out right heart strain. Provided that this is normal, Margarita can be managed here. Management strategies for anticoagulation include: 1. Continuation of Lovenox at therapeutic doses. If this strategies employed, we would simply stop Lovenox with onset of labor. This procedure does not guarantee access to neuraxial anesthesia, and complications related bleeding are possible. 2. Initiation of unfractionated heparin at therapeutic doses. While this is more easily reversible with protamine sulfate, it is difficulty to monitor for therapeutic dosing range. She would need to be maintained inpatient until this range was verified, and continue UFH as outpatient. 3. Initiation of heparin drip. This would be done around the time of IOL. Drip would be stopped 6 hours prior to anticipated vaginal . Given that this is her 3rd child and she has a favorable cervix, I favor cessation of heparin drip at onset of regular contractions. Effect of drip would likely subside by 3 hours time, and could be reversed. This would most easily allow for neuraxial anesthesia, provided that APTT has normalized. Margarita prefers to have epidural as an option. This being the case, I recommended strategy #3, and she agrees. Her last dose of Lovenox was last night at 9 PM. Thus, we will begin heparin drip without loading dose. We will stop drip with onset of regular contractions. I recommend checking APTT at 3 hours after cessation of heparin drip to assure normalization. Manage hemorrhage with pitocin as per usual. All uterotonics are acceptable. AVOID TRANEXAMIC ACID. She should avoid SCDs on her left lower extremity throughout her hospital stay. Provided bleeding is within normal ranges, begin Lovenox at therapeutic doses (BID dosing) 6 hours after delivery. For anticoagulation: Options include therapeutic Lovenox and Warfarin. If she opts for Warfarin, she will still need to use Lovenox with Warfarin for at least 5 days. She would need INR 2-3 for two days prior to cessation of Lovenox. She would also need regular checks of INR, and I am uncertain of the protocol for monitoring at this institution. She would likely need to continue for at least 6 months, and would need to be evaluated by Hematology prior to cessation of anticoagulation. Recommendations have been discussed directly with Lisa Santos CNM. OB will continue to follow for management of anticoagulation.
[2022-07-02 16:26] LABS: SARS PCR* Negative SARS-CoV-2 (Negative)
--- NOTE | 2022-07-02 16:40 | W.PM.LDBA ---
Subjective History of Present Illness Time Seen by Provider: 10:30 Date Seen: 07/02/22 Narrative: Patient is being admitted to Labor and Delivery for IOL for DVT. She is a 36 year old at 39 4/7 weeks gestation. Patient was initially admitted for observation yesterday for new diagnosis of DVT and initiation of Lovenox. This morning, based on gestational age and recent diagnosis of DVT, it was discussed to proceed with IOL. At this time, she was admitted to inpatient and transitioned to a labor room. Dr. Lane consulted with Perinatology at [place] about recommendations for labor. They recommended an Echocardiogram to rule out any heart concerns related to possible pulmonary embolism, as patient had declined CT scanning to rule out pulmonary embolism. Due to scheduling, this was unable to be done until this afternoon. Per the plan, we discussed awaiting to results of the Echo to safely proceed with induction. She is occasionally paolo but this is not new. Dr. Lane and I will comanage her care. Please see Dr. Lane's consult note for further documentation regarding DVT management plan for labor and . Patient has had notable shortness of breath with low blood pressure in previous clinic visits. She was treated with IV therapy and symptoms improved multiple times throughout her . She has had shortness of breath with activity and lying down most of her , this is not new. She reports that she has less shortness of breath than she did in the last few weeks. Her full history and physical was dictated by SANDY Spaulding on 06/14/2022. Please see this for details. OB Problem list 1. Varicella nonimmune NEEDS Varicella 2. Anxiety at 37 weeks Please do DUSTY and PHQ9 next visit 3. Acute DVT, Dx 07/01 Pain in left calf, u/s w/doppler. IMPRESSION: Acute DVT identified within the left lower extremity popliteal vein and probably extending into the peroneal veins. Findings discussed with Dr. Felipe at 6:38 p.m.?on 07/01/[address] Forbes. 4. Shortness of breath - with exertion, but also when lying down and sometimes sitting. Lungs CTA Bilaterally, O2 Sat 100% 07/01/2022 5. BPP 6/8, NST Reactive (07/01/22) OB - H&P: Exam Physical Exam: Vital signs: Temp Pulse Resp BP Pulse Ox 97.8 F 78 16 94/51 L 98 07/02/22 03:00 07/02/22 16:09 07/02/22 03:00 07/02/22 16:09 07/02/22 16:35 Constitutional: Constitutional: mild distress (Mild shortness of breath with activity, not new) and average body habitus Routine HEENT Exam: Head: Present atraumatic Routine Neck Exam: Neck: Present full ROM Detailed Neck Exam: Thyroids: Comments: Supple Routine Respiratory Exam: Respiratory: Present CTA bilaterally Routine Cardiovascular Exam: Cardiovascular: RRR Routine Abdominal Exam: Abdominal: Present soft; Absent tenderness Detailed Labor and Delivery Exam: Patient Gravid: yes Dilation (cm): 3 Effacement (%): 90 Tachysystole: No Contraction intensity: Mild Comments: Cervical exam per Dr. Lane. Fetus (Single): Heart Rate Baseline: 140 Monitor Accelerations: Present Monitor Decelerations: None Group Home Variability: Moderate (11-25) Detailed Lower Extremity Exam: Lower leg: left: tenderness and left: warmth Routine Back/Spine/Pelvis Exam: Back/Spine: full ROM Routine Skin Exam: Present intact Routine Neurological Exam: Present alert, oriented X3 and normal speech Routine Psychiatric Exam: Present normal affect OB - Problem Based A/P Additional Plan (1) Encounter for induction of labor: Status: Acute (2) DVT (deep vein thrombosis) in : Status: Acute (3) Anxiety: Problem details: New at 37 weeks of , related to family life Status: Acute Plan ASSESSMENT:? 36 at 39 4/7 weeks gestation? complicated by:?Anxiety, DVT Labor type: Induced; Induction not yet started. Category 1 FHR pattern.?? Labor complicated by: DVT, on Heparin Drip until notable contractions? GBS negative? ? PLAN:? 1. Routine intrapartum cares as ordered. Plan to start IOL with Pitocin when it is safe to proceed. Plan discussed with Dr. Lane who agrees. She will remain on Heparin Drip until feeling notable contractions. Heparin will be stopped. She will resume Lovenox [address]. For full DVT management instructions, please refer to Dr. Lane's consult note. 2. Monitoring per policy, continuous with DVT. Will also need continuous pulse oximeter.? 3. Planned unmedicated , has had epidural's with all previous births. She will need to be off Heparin with normal labs for 4 hours or greater before analgesic (epidural, intrathecal, or spinal) can be considered or place. In the event of emergency, patient would be under general anesthesia for delivery. These instructions are per Anesthesia. She is aware and understands plan of care. 4. Patient encouraged to reposition and ambulate to promote physiologic labor and .? 5. Anticipate . Plan Pitocin for AMTSL, NO TXA recommended if concern for excessive bleeding.? Delivery/Labor/Induction Plan Plan: induction Induction method: per pitocin protocol Results Results Labs: Echocardiogram Results Final Impression 1. Normal LV size, normal wall thickness, normal global systolic function with an estimated EF of 55-60%. 2. Right ventricular cavity size normal, global systolic RV function is normal. 3. No significant valve disease detected. 4. No pericardial effusion. Reported by Tommie De Paz MD on 07/02/2022 at 335 PM Results to be scanned to chart.
[2022-07-02 17:59] LABS: Partial Thromboplastin Time* 63 Seconds (23-33)
[2022-07-02] MEDS: OXYTOCIN 30 unit/500 ML in NS 30 UNIT/500 ML BAG IVPB (20:12)
[2022-07-02] MEDS: LACTATED RINGERS 1000 ML 1,000 ML 125 ML IV (20:12)
[2022-07-02] MEDS: ACETAMINOPHEN 500 MG TABLET 1000 MG PO (23:31)
[2022-07-02 23:53] LABS: Partial Thromboplastin Time* 68 Seconds (23-33)
[2022-07-03] VITALS (62 sets, daily range): BP systolic 79–108; BP diastolic 50–69; PULSE 58–116; RESP 18; TEMP 36.6; O2SAT 94–100
[2022-07-03] MEDS: diphenhydrAMINE 25 MG CAPSULE 50 MG PO (00:44)
[2022-07-03] MEDS: LACTATED RINGERS 1000 ML 1,000 ML 995 ML IV (03:11)
--- NOTE | 2022-07-03 04:28 | PM.OBPNL ---
Subjective Time Seen by Provider: 19:00 Date Seen: 07/02/22 Narrative: Margarita was admitted this morning following new diagnosis of DVT for IOL. Plan was to await Echo results to safely proceed. Results were received around 4 pm. Due to needs of the unit, her IOL start was delayed for safety. She is anxious to get things started. Discussed plan of starting it soon with recent change of shift and new staff available to safely proceed. Objective Vital Signs: Last Vital Signs Temp 98 F 07/03/22 01:44 Pulse 78 07/03/22 04:18 Resp 18 07/03/22 01:44 BP 95/50 L 07/03/22 04:18 Pulse Ox 98 07/03/22 04:26 Contractions Monitor mode: External Contraction pattern: Irregular Contraction intensity: Mild Assessment Assessment: other (Not in labor, IOL to be started soon) Status: Category l Heart Rate Baseline: 140 Skilled Nursing Variability: Moderate (6-25) Monitor Accelerations: Present Monitor Decelerations: Early Plan Plan: ASSESSMENT:? 34 at 39 4/7 weeks gestation? complicated by:?Anxiety, DVT Labor type: Induced; Induction not yet started. Category 1 FHR pattern.?? Labor complicated by: DVT, on Heparin Drip until notable contractions? GBS negative? ? PLAN:? 1. Routine intrapartum cares as ordered. Plan to start IOL with Pitocin now. She will remain on Heparin Drip until feeling notable contractions. Heparin will be stopped. She will resume Lovenox [address]. For full DVT management instructions, please refer to Dr. Lane's consult note. 2. Monitoring per policy, continuous with DVT. Will also need continuous pulse oximeter.? 3. Planned unmedicated , has had epidural's with all previous births. She will need to be off Heparin with normal labs for 4 hours or greater before analgesic (epidural, intrathecal, or spinal) can be considered or place. In the event of emergency, patient would be under general anesthesia for delivery. These instructions are per Anesthesia. She is aware and understands plan of care. 4. Patient encouraged to reposition and ambulate to promote physiologic labor and .? 5. Anticipate . Plan Pitocin for AMTSL, NO TXA recommended if concern for excessive bleeding.
--- NOTE | 2022-07-03 04:41 | PM.OBPRCVD ---
Procedure Delivery date: 07/03/22 Procedure Done: Global Events: Other (DVT, Anxiety) Intrapartal Events: Labor Induction and Other (DVT management by Heparin, stopped in active labor) Induction method: per pitocin protocol Delivery monitor: external FHT and external uterine Route of delivery: Laceration description: Perineal - 1st Degree Estimated blood loss (mL): 200 Anesthesia type: None Disposition: floor Narrative: The patient is a 5 year-old G3 now P3 admitted on 07/02/2022 at 39 Weeks, 4 Days gestation for IOL for active DVT, admitted from observation.? Cervical exam on admission was 3 cm/90 % effaced/-1 station with membranes intact in vertex presentation.? Contractions were occasional.? heart rate demonstrated baseline 140 bpm with moderate variability, + accelerations, - decelerations; a category 1 tracing.? ? Labor Analgesia:? None ? Pitocin:? Yes, IOL and AMTSL ? Labor onset:? 07/03/2022 at 0030 ? Complete:? 0330 ? Pushing:? 0348 ? heart tones during second stage was notable for bradycardia that would improve with scalp stim and pushing. Between contractions audible improvement with patient deep breathing assisted. Visible with progress made with descent noted during each contraction, delivery was imminent. ? Patient was admitted for newly diagnosed DVT. It was decided to proceed with IOL for active DVT with management of heparin drip until the onset of regular contractions. Pitocin was started last evening at 2011. She started to have regular contractions at 0030, at which time the Heparin drip was turned off. She labored with support of and RN. At approximately 3 am, patient was significantly more uncomfortable and CNM was called to assess cervical change. Patient was found to be complete with bulging BOW. AROM was performed with consent at 0343 with clear fluid. Patient was complete at 0330 and pushing at 0348. of a viable male at 0358 in right tilt in the bed. Vertex delivered OA. Loose nuchal cord was noted and delivered through. No shoulder. Body delivered easily and without incident. Infant passed to mothers abdomen with a vigorous cry. Cord was clamped and cut at > 5 minutes. APGARS were 8 at one minute and 9 at five minutes respectively. Mouth was bulb suctioned. Intact placenta with a 3 vessel cord delivered spontaneously at 0358. Fundus firm. 1st degree identified, not repaired. QBL 200 cc. Mother and baby stable; mother plans to breastfeed. weight pending. ? Placenta delivered spontaneously and complete at 0402 with a 3 vessel cord. ? Mother and infant were stable after delivery. ? Lacerations:? 1st degree, not repaired. ? Blood loss: 200 mL. Blood loss measurement type: QBL ? Sponge and needles counts are correct. Infant Infant Gender: Male presentation: vertex Placental Delivery Description: Spontaneous Cord Description: 3 Vessels and Loose (Delivered through) total score - 1 minute: 8 total score - 5 minute: 9 OB Vag Delivery Procedures Additional Procedures ECV: No Cook Catheter Insertion: No NST: No D&C: No Laceration Repair: No Tubal Ligation : No Other: No
[2022-07-03 04:50] LABS: Hematocrit 37.9 % (33.0-51.0); Hemoglobin* 12.8 gm/dL (12.0-16.0); Mean Corpuscular HGB Conc 34 gm/dL (32-36); Mean Corpuscular Hemoglobin 30 pg (26-34); Mean Corpuscular Volume 87 fL (80-100); Platelet Count* 174 K/uL (140-440); Red Blood Count 4.34 m/uL (4.00-5.20); White Blood Count* 9.38 K/uL (4.50-11.00)
[2022-07-03 04:52] LABS: Slide Review Reflex No
[2022-07-03 05:05] LABS: INR 1.14 (0.91-1.10); Prothrombin Time 15.2 Seconds
[2022-07-03 05:06] LABS: Partial Thromboplastin Time* 28 Seconds (23-33)
[2022-07-03] MEDS: IBUPROFEN 600 MG TABLET PO ×3 (07:07→20:25)
[2022-07-03] MEDS: DOCUSATE SODIUM 100 MG CAPSULE PO (10:02)
[2022-07-03] MEDS: ENOXAPARIN 80 MG/0.8 ML INJ 70 MG SUBCUT ×2 (10:02→21:59)
[2022-07-03] MEDS: OXYCODONE 5 MG TABLET PO (12:56)
[2022-07-04 00:03] VITALS: BP 100/65; PULSE 68; RESP 18; O2SAT 98
[2022-07-04] MEDS: OXYCODONE 5 MG TABLET PO ×2 (00:07→09:21)
[2022-07-04] MEDS: IBUPROFEN 600 MG TABLET PO ×3 (02:01→20:12)
[2022-07-04 04:26] VITALS: BP 102/66; PULSE 70; RESP 18; O2SAT 98
[2022-07-04 07:20] LABS: Hemoglobin* 11.7 gm/dL (12.0-16.0)
--- NOTE | 2022-07-04 08:23 | PM.OBPNVD1 ---
OB - PN:Subj Subjective Time Seen by Provider: 08:25 Date Seen: 07/04/22 Interval history: HPI: Patient had a normal spontaneous vaginal delivery at 4:00 a.m. on 07/03/2022. Her labor course was complicated by diagnosis of left lower extremity DVT on admission. No evidence of PE. She had a heparin drip in labor she has transitioned to Lovenox 70 mg subQ b.i.d. for anticoagulation. Sara does not want to do Lovenox injections when she is discharged and requests bridging to Coumadin. 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 I will ask the hospitalist to consult on the patient to give recommendations for bridging from Lovenox to Coumadin, frequency of checking INR, need for Hematology consultation. OB GYNs do not typically follow INR results. She otherwise states is going well. Her only complaint is that her leg hurts. She has not been ambulating well. A physical therapy consultation was requested. She has a walker. She has been using ibuprofen, Tylenol and oxycodone for left lower extremity pain. She denies having much pain from the delivery. OB - PN: Obj Exam Physical Exam: Vital signs: Temp Pulse Resp BP Pulse Ox O2 Del Method 97.9 F 70 18 102/66 98 07/03/22 16:00 07/04/22 04:26 07/04/22 04:26 07/04/22 04:26 07/04/22 04:26 07/04/22 04:26 Narrative: General: Pleasant, woman in no acute distress. Laying down nursing her baby. Vital signs: Included in her medical record. Heart: Regular rate and rhythm without gallop, rub or murmur. Chest: Clear to auscultation bilaterally without wheezes, rales or rhonchi. Abdomen: Soft, nontender and nondistended. Fundus is firm at 2 cm below the umbilicus. Lochia: Small rubra Extremities: Left lower extremity tender to the touch on the calf and behind the knee. Minimal edema. OB - PN: Obj Data Labs Labs: Laboratory Results - last 24 hr 07/04/22 06:59 Hgb 11.7 L OB - PN: A/P Vaginal Delivery Assessment and Plan (1) Encounter for induction of labor: Status: Resolved (2) DVT (deep vein thrombosis) in : Problem details: Diagnosed on admission for IOL on 07/02. Consultation request for the hospitalist to give recommendations for how to bridge from Lovenox to Coumadin, frequency of checking INR, aid in establishing care with a physician who can follow her INR after discharge. The patient understands that she will have to be on Lovenox until her Coumadin is therapeutic. Physical therapy consultation requested to help with mobility: Left lower extremity pain. Status: Acute (3) Anxiety: Problem details: New at 37 weeks of , related to family life Status: Acute Plan 1. Encourage ambulation. 2. Await results of consultation requests. 3. Discharge home no earlier than tomorrow.
[2022-07-04 08:52] VITALS: BP 82/52; PULSE 72; RESP 18; TEMP 37.1; O2SAT 97
[2022-07-04] MEDS: DOCUSATE SODIUM 100 MG CAPSULE PO (09:21)
--- NOTE | 2022-07-04 09:32 | PM.IMCN1 ---
Date of Consult Consult date: 07/04/22 Requesting Physician: [facility] Primary Care Provider: Not a Local Provider Consult Narrative Reason for consult: Anticoagulation management Narrative: Margarita Granado is a 36 year old 3 para 3 seen for management of anticoagulation. she developed pain behind her left knee and was found to have a DVT in her left popliteal vein three days ago. At that time she was 39 and half weeks gestation . She is admitted to the hospital, placed on enoxaparin, and labor was induced. She delivered a healthy baby without complications. Prior to induction of labor she had an echocardiogram which was normal. She did not have significant disturbance in her vital signs. She remains on therapeutic enoxaparin. she is doing well. She is nursing her baby and plans to continue breast-feeding. She still has pain behind her left knee. She has no personal history of blood clots or thrombophilia. There is no family history of bleeding or clotting disorder. She reports she is otherwise healthy. He she is on no other medications other than vitamins. 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 Marital status: . Islam/cultural needs: no Chemical or radiation exposure: no. Pre- tobacco use: no. Pre- alcohol use: no. Current tobacco use: no. Current alcohol use: no. Recreational drug use: no. Dietary restrictions: no. Blood transfusion acceptable in an emergency: yes PSYCHOSOCIAL HISTORY: History of depression or currently depresses: no Current physical, emotional, or sexual mistreatment: no. Problems that will make it hard to make it to appointments: no. Smoking Status: Never smoker Little interest or pleasure in doing things: more than half the days Feeling down, depressed, or hopeless: nearly every day Meds Home Medications and Allergies Allergies Allergy/AdvReac Type Severity Reaction Status Date / Time egg Allergy Rash Verified 07/02/22 11:32 Exam Narrative: Exam Narrative: She is alert and appears in no distress. She is nursing her baby. Left leg is examined. She has mild tenderness with palpation in the popliteal fossa. No significant edema in the calf/leg or ankle. Intact pedal pulses. Const: Vital Signs, click to edit/add: Vital Signs - 24 hr 07/03/22 12:40 07/03/22 16:00 07/03/22 20:23 Temperature 97.8 F 97.9 F Pulse Rate [Pulse Oximeter] 70 67 67 Respiratory Rate 18 18 18 Blood Pressure [Le ft Arm] Blood Pressure [Ri ght Arm] 104/69 94/58 L 95/62 Pulse Oximetry 99 98 98 Oxygen Delivery Me thod Room Air Room Air Room Air 07/04/22 00:03 07/04/22 04:26 07/04/22 08:52 Temperature 98.7 F Pulse Rate [Pulse Oximeter] 68 70 72 Respiratory Rate 18 18 18 Blood Pressure [Le ft Arm] 82/52 L Blood Pressure [Ri ght Arm] 100/65 102/66 Pulse Oximetry 98 98 97 Oxygen Delivery Me thod Room Air Room Air Room Air Documenting provider has reviewed patient's vital signs: yes Labs Labs: Short CBC 07/04/22 Range/Units 06:59 Hgb 11.7 L (12.0-16.0) gm/dL Assessment and Plan Assessment and plan (1) DVT (deep vein thrombosis) in : Problem comment: Diagnosed on admission for IOL on 07/02. Consultation request for the hospitalist to give recommendations for how to bridge from Lovenox to Coumadin, frequency of checking INR, aid in establishing care with a physician who can follow her INR after discharge. The patient understands that she will have to be on Lovenox until her Coumadin is therapeutic. Physical therapy consultation requested to help with mobility: Left lower extremity pain. Status: Acute (2) Lactating mother: Status: Acute Plan I discussed with patient and her a plan of care for management of DVT in the period. I recommend initiating warfarin with therapeutic anticoagulation to an INR of 2 to 3 for minimum of 3 months. Today we will start with the warfarin dose of 5 mg. She will need bridging with therapeutical enoxaparin at 70 mg subQ twice daily until the INR has been therapeutic for 2 days. This typically takes 5-7 days. She will have an INR checked on Friday, in 3 days. Results will be called to me to make adjustments in her warfarin dose. She can establish follow-up at [facility] with the anticoagulation nurse on FridayJuly 08. I discussed with the patient and her plan of care for treatment of DVT with anticoagulation, risks for bleeding and clotting, outpatient monitoring and concerns related to breast feeding and future need for control. Total time spent today is 45 minutes, 35 minutes in coordination of care and counseling with patient and . Procedures Vaginal Delivery presentation: vertex
[2022-07-04] MEDS: ENOXAPARIN 80 MG/0.8 ML INJ 70 MG SUBCUT ×2 (10:14→22:01)
[2022-07-04] MEDS: WARFARIN 5 MG TABLET PO (10:15)
[2022-07-04 12:31] VITALS: BP 82/51; RESP 18; TEMP 37.1; O2SAT 97
[2022-07-04 16:09] VITALS: BP 96/66; RESP 18; TEMP 36.6; O2SAT 98
[2022-07-04 20:05] VITALS: BP 102/69; PULSE 87; RESP 18; O2SAT 98
[2022-07-05] MEDS: OXYCODONE 5 MG TABLET PO (00:02)
[2022-07-05 00:03] VITALS: BP 94/64; PULSE 84; RESP 18; O2SAT 98
[2022-07-05] MEDS: ACETAMINOPHEN 500 MG TABLET 1000 MG PO ×2 (00:43→07:55)
[2022-07-05 04:28] VITALS: BP 107/73; PULSE 88; RESP 18; O2SAT 98
--- NOTE | 2022-07-05 07:26 | P.DS_ITS ---
DS: Providers Provider Date Seen: 07/05/22 Date of admission: 07/02/22 09:52 Primary care physician: Not a Local Provider Admitting Clinician: Christine Lane MD Consults: 07/04/22 07:51 Consult to Physical Therapy [CONS] Routine Comment: Reason(s) for PT Consult:: Evaluate and Treat Any Restrictions?:: No Restrictions 07/04/22 08:31 Consult to Physician [CONS] Routine Comment: Consulting Provider: Sergio Salazar Has provider been notified: Yes Attending Physician on discharge: Lisa Santos CNM Date of Discharge: 07/05/22 DS: Diagnosis Discharge Diagnosis (1) care and examination immediately after delivery: Status: Acute (2) DVT (deep vein thrombosis) in : Status: Acute Problem details: Diagnosed on admission for IOL on 07/02. Dr. Salazar has assumed management of DVT. The patient understands that she will have to be on Lovenox until her Coumadin is therapeutic. She will have labs monitored and resulted to him. He will continue management with plan for her to continue management with the [facility] and anticoagulation nurse. Physical therapy consultation requested to help with mobility: Left lower extremity pain. (3) Lactating mother: Status: Acute (4) Normal spontaneous vaginal delivery: Status: Acute Exam Const: Vital Signs, click to edit/add: Vital Signs - 24 hr 07/04/22 08:52 07/04/22 12:31 07/04/22 16:09 Temperature 98.7 F 98.8 F 98 F Pulse Rate [Pulse Oximeter] 72 Respiratory Rate 18 18 18 Blood Pressure [Le ft Arm] 82/52 L 82/51 L 96/66 Blood Pressure [Ri ght Arm] Pulse Oximetry 97 97 98 Oxygen Delivery Me thod Room Air Room Air Room Air 07/04/22 20:05 07/05/22 00:03 07/05/22 04:28 Temperature Pulse Rate [Pulse Oximeter] 87 84 88 Respiratory Rate 18 18 18 Blood Pressure [Le ft Arm] Blood Pressure [Ri ght Arm] 102/69 94/64 107/73 Pulse Oximetry 98 98 98 Oxygen Delivery Me thod Room Air Room Air Room Air Documenting provider has reviewed patient's vital signs: yes Common normals: no apparent distress, oriented x3, healthy appearing and alert HENMT: Common normals: normocephalic Head and scalp: normocephalic Eye: Common normals: PERRL Pupil: PERRL Neck & C-Spine: Common normals: full ROM and supple Chest: Common normals: inspection of chest normal Resp: Common normals: normal respiratory effort and clear to auscultation bilaterally Auscultation: clear to auscultation bilaterally Cardio: Common normals: regular rate and regular rhythm Rate: regular rate Rhythm: regular rhythm GI: Common normals: soft to palpation Inspection: normal to inspection Palpation: soft : OB/external & speculum: Yes perineal/vaginal laceration Laceration: 1st Uterus: U/2 Lochia: scant Back & Pelvis: Common normals: thoracic and lumbar spine normal to inspection Extremity: Common normals: normal to inspection and full ROM Left lower extremity: lower leg Left lower leg: palpation (mild tenderness) Neuro: Common normals: oriented x3 Sensorium/orientation: alert Speech: speech normal Psych: Common normals: mental status grossly normal, thought process normal, speech normal and activity/motor behavior normal Speech: normal speech Thought process: normal thought process Skin: Common normals: no rashes or lesions noted General skin exam: no rashes or lesions noted OB - DS: Summary Hospital Course Hospital Course: Margarita is a 36 year old G 3 P 3 at 39 4/7 weeks gestation that was admitted to the Center on 07/02/22 for IOL following diagnosis of DVT. She had an uncomplicated vaginal delivery. She delivered a viable male . She is breast feeding and reports it is going well. the patient has done well. She is ambulating independently, voiding, passing flatus, but has not yet had a bowel movement. Her care has been comanaged with OB and transitioned to the Hospitalist for management of DVT. Please review Dr. Salazar's note for further management of her DVT. Peripartum Data Infant delivery method: Vaginal Laceration description: Perineal - 1st Degree complications: none [place] Infant Gender: Male Discharge Plan: Home Status at Discharge Functional status at discharge: independent ambulation Overall status at discharge: patient is progressing back to baseline Time Spent with Patient Time attestation: Total time spent providing and/or coordinating discharge services: Time spent: Less than 30 minutes Discharge Plan Discharge Disposition: Home, Self-Care Date of Admission: 07/02/22 09:52 Attending Provider on Discharge: Lisa Santos Consulting Providers: Sergio Salazar Primary Care Provider: Provider,Not a Local Condition: Improved Anticipated Discharge Date/Time: 07/05/22 16:34 Discharge Medications: New docusate sodium 100 mg Capsule 100 mg PO BID PRN60 Days Qty: 100 0RF ibuprofen 600 mg Tablet 600 mg PO Q6H PRN14 Days Qty: 30 0RF oxycodone 5 mg Tablet 5 mg PO 3XD PRN (Reason: Pain) 7 Days Qty: 20 0RF enoxaparin [Lovenox] 80 mg/0.8 mL Syringe 70 mg subcut Q12H 7 Days Qty: 9.8 1RF warfarin 5 mg tablet 5 mg PO DAILY Qty: 7 2RF Rx Instructions: Take 1 tablet daily at approximately 5 pm acetaminophen 500 mg Tablet 1,000 mg PO Q6H PRNQty: 0 0RF Continued prenat.vits,navneet,iio-iwcp-fwdfh Tablet 1 tab PO QDAY Qty: 90 3RF Discharge Orders: Discharge Order (Routine); Ordered 07/05/22 Ordered By: Lisa Santos Patient Education: Enoxaparin (By injection) (Lovenox), Deep Vein Thrombosis (GEN), OB Over the Counter Medication Information, OB Vaginal/Breast Feeding Additional Instructions: Discharge instructions were reviewed with the patient including signs and symptoms of infection and home going medications Nothing vaginally for 6 weeks: no tampons or intercourse Do not drive while taking narcotic pain medication(s) Off Work or School for 6 weeks 2-week visit: discuss infant feeding concerns, review control options and screen for anxiety/depression. 6-week visit for an annual exam. consultation services are available to all mothers and babies for the first year after delivery.? To make an appointment, please call [phone]. Activity Level: Activity as Tolerated Follow Up Appointments: [facility] [Provider Group] (2 weeks and 6 weeks ) Forms: [facility] Inst[facility]
[2022-07-05] MEDS: DOCUSATE SODIUM 100 MG CAPSULE PO (07:55)
[2022-07-05 07:57] VITALS: BP 115/79; PULSE 68; RESP 18; TEMP 36.3; O2SAT 97
[2022-07-05 08:08] LABS: INR 1.08 (0.91-1.10); Prothrombin Time 14.7 Seconds
[2022-07-05] MEDS: ENOXAPARIN 80 MG/0.8 ML INJ 70 MG SUBCUT (10:53)
[2022-07-05] MEDS: IBUPROFEN 600 MG TABLET PO (10:53)
[2022-07-05] MEDS: WARFARIN 2.5 MG TABLET 7.5 MG PO (15:01)
--- NOTE | 2022-07-07 14:08 | PM.EN ---
Chart Event Note Time Seen by Provider: 14:11 Date Seen: 07/07/22 Chart Event Note: I spoke with the patient on the phone today. She was supposed to have a INR test today. She reports that she is feeling ill with gastrointestinal symptoms. Her children have similar symptoms. I have urged her to get an appointment tomorrow in clinic to get an INR check and to evaluate her gastrointestinal illness. The importance of INR monitoring was stressed with her today.
== END 2022-07-05 15:20 | disposition home or self-care (01) | DRG 806 ==
LOC: OB OUT 16:17 → OB 16:40
PROVIDERS: Advanced Practice Midwife; Family Medicine; Admitting Provider Obstetrics & Gynecology; Visit Provider Obstetrics & Gynecology
DX: O22.33 Deep phlebothrombosis in pregnancy, third trimester (principal); I82.432 Acute embolism and thrombosis of left popliteal vein; Z37.0 Single live birth; R06.02 Shortness of breath; O70.0 First degree perineal laceration during delivery; O99.344 Other mental disorders complicating childbirth; F41.9 Anxiety disorder, unspecified; Z3A.39 39 weeks gestation of pregnancy
CPT/HCPCS: 36415; 76819; 83880; 84484; 85018; 85025; 85027; 85610; 85730; 86850; 86900; 86901; 87635; 93306; 93971; 99213; A9270; J1644; J1650; J7120

== ENCOUNTER 2024-08-16 09:37 | Outpatient (CLI) | payer MEDICAID, SELFPAY ==
--- OUTSIDE RECORDS SUMMARY | 2024-08-16 09:40 | XMS_ITS | Clinical Summary ---
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 0 02/22/2021 Active vit 28/iron fum/folic (multivitamin folic acid 1 mg)Indications: Positive test Take 1 Tablet by mouth once daily. 90 Tablet 3 11/21/2021 Active warfarin (COUMADIN) 2.5 mg tabletIndicatio ns:Acute deep vein thrombosis (DVT) of popliteal vein of left lower extremity (HC),Anticoagul ation monitoring, INR range 2-3,On bridging treatment with enoxaparin 07/22: 7.5 mg warfarin (2.5 mg tablet x 3) by mouth. Recheck INR 07/23/22. 07/22/2022 Active Active Problems Problem Noted Date Diagnosed Date follow-up 07/08/2022 Acute deep vein thrombosis ( DVT) of popliteal vein of left lower extremity 07/08/2022 Anticoagulation monitoring, INR range 2-3 2021 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 INH. 022 Overview (11/21/2021): Positive test 11/09/21. No known exposure to active TB in past 2 years. Tx deferred until 3 mos after delivery. Needs CXR prior to initiating. Immunizations Name Administration Dates Next Due COVID-19 vaccine (Pfizer-Bio NTech 30mcg/0.3mL) 12YO+ BIVALENT PF, MDV 05/29/2022 COVID-19 vaccine (Pfizer-Bio NTech 30mcg/0.3mL) 12YO+ DARRON-SUCROSE PF, MDV 10/18/2021 COVID-19 vaccine (Pfizer-BioNTech 30mcg/0.3mL) P F, MDV 03/15/2021,02/22/2021 Tdap 05/10/2022 Social History Tobacco Use Types Packs/Day Years Used Date Smoking Tobacco: Never Smokeless Tobacco: Never Tobacco Cessation:Counseling Given: Yes Alcohol Use Standard Drinks/Week Comments Never 0 (1 standard drink = 0.6 oz pur e alcohol) PHQ-2 Answer Date Recorded PHQ-2 TOTAL SCORE 2 07/08/2022 Social Connections Answer Date Recorded Frequency of Communication with Friends and Fami ly Not on file 09/08/2021 Financial Resource Strain Answer Date R ecorded Difficulty of Paying Living Expenses Not on file 09/08/2021 Difficulty of Paying Living Expenses Not on file 09/08/2021 Comments No Sex and Gender Information Value Date Recorded Sex Assigned at Not on file Legal Sex Female 4:39 PM CDT Gender Identity Not on file Sexual Orientation Not on file Obstetrics History Para Term AB IAB SAB Ectopic Multiple Livin g Live Births 4 2 2 2 Date Outcome GA Total Labor Labor/2nd/3rd Weight Sex Type Anes PTL Jennifer A1 A5 Name Clin Term Term Last Filed Vital Signs Vital Sign Reading Time Taken Comments Blood Pressure 101/69 07/08/2022 1:01 PM CDT Pulse 82 07/08/2022 1:01 PM CDT Temperature 37.5 C (99.5 F) 11/21/2021 11:34 AM CDT Respiratory Rate - - Oxygen Saturation 97% 07/08/2022 1:01 PM CDT Inhaled Oxygen Concentration - - Weight 60.8 kg (134 lb) 07/08/2022 1:01 PM CDT Height 164.3 cm (5' 4.69) 07/08/2022 1:01 PM CD T Body Mass Index 22.52 07/08/2022 1:01 PM CDT Plan of Treatment Health Maintenance Due Date Last Done Comments BMI (ht and wt on same day) for age 18+ 07/08/2023 07/08/2022, 11/21/2021, 02/22/2021 Depression screening for age 12+ 07/12/2023 07/12/2022, 07/11/2022, 07/10/2022, Additional history exists COVID-19 vaccine series (2023- season) 2024 05/29/2022, 10/18/2021, 03/15/2021, Additional history exists Influenza for age 9-49 05/09/2024 Pap test for age 21-65 12/11/2024 12/11/2021, 2021 Tetanus booster 05/10/2032 05/10/2022 HIV for age 15-65 Completed 11/21/2021, 10/18/2021 Hepatitis C screening for age 18-79 Completed 11/21/2021 Tdap Completed 05/10/2022 Pneumococcal series for age 6-64 Aged Out No longer eligible based on patient's age to complete this topic Procedures Procedure Name Priority Date/Time Associated Diagnosis Comments HPV HIGH RISK Routine 12/11/2021 2:15 PM CDT ANTI HIV 1/2 Routine 11/21/2021 12:26 PM CDT Positive test ANTI HCV Routine 11/21/2021 12:26 PM CDT Positive test from Last 3 Months or Most Recently Relevant to Health Maintenance Results * HPV HIGH RISK (12/11/2021 2:15 PM CDT) TYPE 16 Negative Negative 12/14/2021 1:38 PM CDT [facility] TYPE 18 Negative Negative 12/14/2021 1:38 PM CDT [facility] OTHER HIGH RISK TYPES Negative Negative 12/14/2021 1:38 PM CDT [facility] Other (Cervical/Vagina l) 12/11/2021 2:15 PM CDT 12/13/2021 9:37 AM CDT Narrative [facility] - 12/14/2021 1:38 PM CDT HPV types 16, 18, 31, 33, 35, 39, 45, 51, 52, 56, 58, 59, 66 and 68 DNA were undetectable or below the pre-set threshold. Methodology: Michael [place] 4800 HPV Test Dinah Obrien PA-C MICROBIOLOGY Final Resu lt Performing Organization Address City/[facility]/ZIP Co de Phone Number [facility] [address] [place] [address], [place] * ANTI HCV (11/21/2021 12:26 PM CDT) HEPATITIS C ANTIBODY Non-React alejandro Non-React alejandro 11/22/2021 2:29 AM CDT [facility] Comment:Antibodies to HCV no t detected; does not exclude the possibility of exposure to HCV. Blood BLOOD SPECIMEN / Unknown Venipuncture / Unknown 11/21/2021 12:26 PM CDT 11/21/2021 12:34 PM CDT Fartun Noonan MD SEND OUTS Final Resul t Performing Organization Address City/[facility] Co de Phone Number [facility] [address] [place] [address], [place] * ANTI HIV 1/2 (11/21/2021 12:26 PM CDT) HIV-1/HIV-2 ANTIBODY Non-Reacti ve Non-Reacti ve 11/22/2021 2:31 AM CDT [facility] Comment:HIV-1 p24 and HIV-1/ HIV-2 Ab not detected. Blood BLOOD SPECIMEN / Unknown Venipuncture / Unknown 11/21/2021 12:26 PM CDT 11/21/2021 12:34 PM CDT Fartun Noonan MD SEND OUTS Final Resul t Performing Organization Address City/[facility]/ZIP Co de Phone Number [facility] 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
[2024-08-16 11:55] LABS: Chlamydia DNA Amplified* NOT DETECTED (No Detected); GC DNA Amplified* NOT DETECTED (No Detected)
== END 2024-08-16 09:38 | disposition home or self-care (01) ==
LOC: NFLDREF 09:38
PROVIDERS: Visit Provider Obstetrics & Gynecology
DX: N94.10 Unspecified dyspareunia (principal); Z13.6 Encounter for screening for cardiovascular disorders; Z13.1 Encounter for screening for diabetes mellitus
CPT/HCPCS: 80061; 82947; 87491; 87591

== ENCOUNTER 2024-10-19 09:30 | Outpatient (RCR) | payer MEDICAID, SELFPAY ==
--- NOTE | 2024-09-21 13:01 | PT.OPEX ---
[facility] [place] Outpatient Eval PT [facility] Outpatient Eval Start: 09/17/24 08:35 Freq: Status: Active Protocol: Document 09/21/24 10:11 CHEY (Rec: 09/21/24 12:57 CHEY [id number]) E-signed By January Crespo, PT Physical Therapy Outpatient Evaluation Insurance Information Recert Due Date 12/20/24 Insurance Name Medicaid Medical Diagnosis dyspareunia Treating Diagnosis dyspareunia Referring MD Twyla Hernandez MD Subjective Preferred Name Margarita Subjective Pain or discomfort or both after sexual intercourse. Pain is more deep inside. Pain is for hours and some pain the next day. Immediately p intercourse ache, then burning in delayed. She has been avoiding intercourse due to discomfort, 5/10 pain. 3 vaginal hx, no longer breast feeding. Denies dryness . Had a large tear with first , stitches. Missionary position was worse. Lesser pain with medical exam. Pain with menses increased as well. HEavy and clots with bleeding . Pain start about a year after 3rd (1 year ago). Initial penetration not as painful, worse with time. Denies pain with clitoral stimulation. 7 voids/day no nocturia denies fecal urgency LBP episode last spring- went to ER, was on a steroid Pain Comments 5/10 p intercourse in deep pelvic floor. 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 Missionary worst position / hx: 3 vaginal deliveries, 12, 10, and 4 yrs old. Back pain worst in 3rd Breathing: chest/neck breathing Pressure management: no doming on linea alba Linea Alba: good tension, 2 finger widths at umbilicus Posture Assessment: PPT in sitting, APT in standing. IR legs, fwd head TA strength: Fair LUMBAR ROM Flexion: to toes, no pain repeated flexion: no pain Extension: good ROM repeated ext: no sx Right Sidebend: no sx Left Sidebend: no sx LE MMT Hip flexion: R 4/5 L 4/5 Hip Extension: R 4-/5 L 4-/5 Hip abduction: R 4/5 L 4/5 knee extension: R 4+/5 L 4+/5 Knee Flexion: R 4/5 L 4/5 JOINT MOBILITY/PALPATION Bilat knee hyperect of 15 degrees in standing Hip IR in standingPatella tyra c Versailles Schlatter's tibial ossification bilat Bilat bunions R>L rib flare bilat c abdominal gripping SPECIAL TESTS Straight leg raise: - Crossed straight leg raise: - Slump test: - Quadrant test: + R SI/HIP tests VIVI - FADIR + for mm tension SCOUR - Gillet Test: Standing forward bend Test: Gapping and Compression test: TTP: coccygeus and piriformis bilat Illium R posteriorly positioned Functional Test Performed & Score SLS mild pelvic drop R Assessment Assessment/Impression Pt is a 38 yr old female c a 1 yr h/o dyspareunia in deep pelvic floor. She does have recurrent LBP as co-morbidity c impaired deep core coordination. She has impaired hip strength R>L and impaired CKC WB. She has valgus deformities in Bilat hallux. She has IR/Add on swing phase of gait. She likely has sx of pelvic increased resting tone from compensatory strategies for impaired hip strength and recurrent LBP. Will progress to internal assessment for further tissue assessment of pain, resting tone, coordination of pelvic floor mm. She is appropriate for skilled PT interventions. Primary Functional Limitations dyspareunia, dysmenorrhea Plan of Care Rehabilitation Potential Good Physical Therapy Goals Pt will report 1/3 for Manrioff scale in 12 weeks. Pt will demonstrate indep c HEP to progress gains made in therapy in 4 weeks. Pt will demonstrate improved pelvic floor coordination with lengthening of pelvic floor muscles in 6 weeks. Pt will demonstrate indep c big belly breathing to enhance regular pelvic floor mobility in 8 weeks. Treatment Plan/Direct Interventions Biofeedback,Electrical Stimulation,Gait Training,Heat ,Joint Mobilization,Manual Therapy,Neuromuscular Re-ed, Orthotics/Braces,Self-Care/ Home Management,Therapeutic Activities,Therapeutic Exercises,Ultrasound Frequency/Duration weekly x12 weeks Patient Will Be Discharged From Therapy Completion of LTG(s),Skills Plateau,Independent w/HEP, Independently Progressing Evaluation Billing Untimed Code Treatment Minutes 45 PT Eval No Charge No Complexity Low Certification Information Initial Certification Date 09/21/24 Ending Certification Date 12/20/24 Provider Signature Required Yes Provider Signature Shows Agreement With POC & Medical Necessity Physician NPI Number Write NPI# Here Physician Comment/Change : Physician Signature & Date Requested Please Sign/Date Here
== END 2025-02-16 23:59 | disposition home or self-care (01) ==
PROVIDERS: Visit Provider Obstetrics & Gynecology
DX: M62.89 Other specified disorders of muscle (principal); N94.10 Unspecified dyspareunia; Z51.89 Encounter for other specified aftercare
CPT/HCPCS: 97112; 97140; 97161; 97530; 97535

== ENCOUNTER 2025-08-17 10:25 | Outpatient (CLI) | payer MEDICAID, SELFPAY | END 2025-08-17 10:26 | disposition home or self-care (01) | LOC: NFLDREF 10:26 | PROVIDERS: PCP Family Medicine; Visit Provider Family Medicine | DX: R53.83 Other fatigue (principal) | CPT/HCPCS: 84443 ==